=== PATIENT | male | born 1980 | race Caucasian/White ===

== ENCOUNTER 2024-09-23 15:24 | Outpatient (CLI) | payer OTHER, SELFPAY ==
--- NOTE | ~2024-09-23 | US_ITS ---
Right lower chest upper abdominal area ULTRASOUND (Doppler ultrasound interrogation techniques used a s needed for this exam.) Ordering provider: SHAYNA Rodriguez History: . 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 Comparison: None. FINDINGS/impression: 1.4 x 0.7 x 1.4 cm hyperechoic area is noted most likely a lipoma. Differential include lymph node. F ollow-up advised. Reviewed, dictated and finalized at location A. [employer] ACCOUNT MANAGER
== END 2024-09-23 15:25 | disposition home or self-care (01) ==
LOC: MICIMG 15:25
PROVIDERS: PCP Family Medicine; Visit Provider Nurse Practitioner Family
DX: D17.9 Benign lipomatous neoplasm, unspecified (principal)
CPT/HCPCS: 76705

== ENCOUNTER 2024-11-18 06:50 | Outpatient (CLI) | payer OTHER, SELFPAY ==
--- NOTE | ~2024-11-18 | MR_ITS ---
EXAMINATION: MR abdomen wo/w con DATE: 11/18/2024 07:57 INDICATION: Benign lipomatous neoplasm TECHNIQUE: Magnetic resonance imaging (MRI) of the abdomen was performed without and with 17 mL Multi phil intravenous contrast. Sequences included coronal T2-weighted SS-FSE, coronal and axial FS 2D-F IESTA, axial STIR FSE, axial T2-weighted SS-FSE, axial T2-weighted FS SS-FSE, axial diffusion-weighte d SE, axial dual-echo T1-weighted FSPGR, and axial and coronal T1-weighted LAVA. Postcontrast axial T 1-weighted LAVA images were obtained in a time course. Postcontrast coronal T1-weighted LAVA images w ere obtained. COMPARISON: Ultrasound dated 09/23/2024 FINDINGS: Heart size is normal. No pericardial or pleural effusion. Liver, gallbladder, spleen, pancreas and bi lateral adrenal glands are normal. Bilateral T2 hyperintense nonenhancing renal cysts the larger on t he left measuring 1.3 cm. Visualized portion of the bowels are unremarkable. Normal bone marrow signa l throughout. Tiny fat-containing umbilical hernia. No abnormal mass or evident encapsulated lipoma e vident at the posterolateral right abdominal wall underlying the marker indicating the region of conc genevieve.. IMPRESSION: 1. No evident lipoma or other abnormal masses or fluid collections at the lateral right abdominal wal l region of concern. Reviewed, dictated and finalized at location A. IMPRESSION: 1. No evident lipoma or other abnormal masses or fluid collections at the later al right abdominal wall region of concern.
== END 2024-11-18 06:51 | disposition home or self-care (01) ==
PROVIDERS: PCP Family Medicine; Visit Provider Nurse Practitioner Family
DX: D17.9 Benign lipomatous neoplasm, unspecified (principal)
CPT/HCPCS: 74183; A9577

== ENCOUNTER 2024-12-26 01:36 | Day surgery (SDC) | payer OTHER, SELFPAY ==
[2024-12-16 15:05] VITALS: BMI 26.5
[2024-12-26 10:52] VITALS: BP 125/90; PULSE 66; RESP 18; TEMP 35.8; O2SAT 100; BMI 25.6
[2024-12-26] MEDS: LACTATED RINGERS 1,000 ML 150 ML IV CONT (11:07)
--- NOTE | 2024-12-26 12:01 | WPDANESEPPF ---
Anes - Initial Pre Proc Eval Procedure: Operation Date: 12/26/24 12:30 Proposed Procedures p Screening Colonoscopy - Lino Hameed MD Date/Time: 12/26/24 12:01 Surgeon: Lino Hameed MD Pre Op Diagnosis: Screening Patient Data Age: 44 Gender: M Height: 1.78 m Weight: 81 kg Last Vital Signs Temp 96.4 F L 12/26/24 10:52 Pulse 66 12/26/24 10:52 Resp 18 12/26/24 10:52 BP 125/90 12/26/24 10:52 Pulse Ox 100 12/26/24 10:52 O2 Del Method Room Air 12/26/24 10:52 Allergies Allergy/AdvReac Type Severity Reaction Status Date / Time No Known Allergies Allergy Mild Verified 12/26/24 10:56 Home Medications ?Medication ?Instructions ?Recorded ?Confirmed ?Type No Home Medications 12/06/24 12/16/24 History Patient hx anesthesia problems: none Family hx anesthesia problems: none Results Review: All pre-operative results and documents have been reviewed as part of the pre-operative evaluation. [facility] Past Medical History Medical History ERIK (obstructive sleep apnea) Anxiety with depression Anxiety Surgical History Surgical History History of partial thyroidectomy Hx of LASIK Family History Family History Grandparent Family history of emphysema Social History Social History Smoking packs per day: 0.5 Smoking cigarettes per day: 10.0 Years smoked: 20 Smoking pack-years: 10.00 Smoking status: Former smoker Tobacco type: cigarettes and e-cigarettes/vaping Second hand tobacco smoke exposure: No Alcohol intake: current Substance use type: marijuana Spiritual care concerns: No Anes - Eval Final PreProcedure Day of Procedure 12/26/24 12:01 Patient weight: overweight Heart: regular rate and rhythm Lungs: clear to auscultation Airway: Mallampati scale class II Neurological: alert and oriented Last oral intake: >/= 8 hours ASA classification: II Emergent: yes Anesthetic plan: proceed Anesthesia type and monitoring: general GIVS and standard monitoring Results Review: All pre-operative results and documents have been reviewed as part of the pre-operative evaluation. Informed Consent: The patient's anesthetic plan and its attendant risks and benefits were discussed with the patient/family/POA. Questions were solicited and answers provided to the satisfaction of the patient/family/POA.
--- NOTE | 2024-12-26 12:05 | PM.IMHP ---
H&P: HPI History of Present Illness Date/Time: 12/26/24 12:05 Chief Complaint: Screening colonoscopy Narrative: This is the patient's first colonoscopy. There are no GI symptoms and there is no family history of colorectal cancer. Review of Systems Review of Systems: All systems reviewed & are unremarkable except as noted in HPI and below PMFSH Past Medical History Medical History ERIK (obstructive sleep apnea) Anxiety with depression Anxiety Surgical History Surgical History History of partial thyroidectomy Hx of LASIK Family History Family History Grandparent Family history of emphysema Social History Social History Smoking packs per day: 0.5 Smoking cigarettes per day: 10.0 Years smoked: 20 Smoking pack-years: 10.00 Smoking status: Former smoker Tobacco type: cigarettes and e-cigarettes/vaping Second hand tobacco smoke exposure: No Alcohol intake: current Substance use type: marijuana Spiritual care concerns: No Meds Home Medications and Allergies Home Medications ?Medication ?Instructions ?Recorded ?Confirmed ?Type No Home Medications 12/06/24 12/16/24 History Allergies Allergy/AdvReac Type Severity Reaction Status Date / Time No Known Allergies Allergy Mild Verified 12/26/24 10:56 Vital Signs Vital Signs - 24 hr 12/26/24 10:52 Temperature 96.4 F L Pulse Rate 66 Respiratory Rate 18 Blood Pressure 125/90 Pulse Oximetry 100 Oxygen Delivery Room Air Exam Const: General: cooperative and healthy appearing Resp: Effort & Inspection: normal respiratory effort and able to speak in complete sentences Auscultation: clear to auscultation bilaterally Cardio: Rate: regular rate Rhythm: regular rhythm GI: Inspection: normal to inspection GI Palp: No No hepatosplenomegaly present Auscultation: normal bowel sounds Rectal Exam: deferred Skin: General skin exam: normal color Psych: Appearance: grossly normal Mental Status: mental status grossly normal Assessment and Plan Assessment and plan (1) Screen for colon cancer: Code(s): Z12.11 - Encounter for screening for malignant neoplasm of colon Status: Acute Assessment and Plan: The patient is deemed a good candidate for the procedure. Consent signed. Will proceed.
--- NOTE | 2024-12-26 12:19 | S_PTH ---
PATIENT: Yobany Vicente LOC: [facility] #:[id number] AGE/SX: 44/M ROOM: RE12/26/[address]: Lino Hameed MD : 1980 BED: DIS: 12/26/2024 SPEC #: [id number] RECD: 12/26/24 12:57 STATUS: ASHIA REQ #: [id number] JESUS: 12/26/24 12:[address]: Lino Hameed DEPT: [facility] Surgical RECD BY: Phyllis Mcguire ENTERED: 12/26/24 12:57 SP TYPE: Surgical OTHR DR: Jamison Fofana MD Tissues: A - Colon Polypectomy Procedures: Hematoxylin and Eosin Stain Gross and Microscopic Level 4
[2024-12-26 12:27] VITALS: BP 117/81; PULSE 60; RESP 17; O2SAT 100
[2024-12-26 12:37] VITALS: BP 113/78; PULSE 60; RESP 15; O2SAT 100
[2024-12-26 12:47] VITALS: BP 119/77; PULSE 62; RESP 15; O2SAT 100
== END 2024-12-26 13:02 | disposition home or self-care (01) ==
PROVIDERS: PCP Family Medicine; Referring Provider Nurse Practitioner Family; Visit Provider Internal Medicine Gastroenterology
PROC: 0DJD8ZZ Inspection of Lower Intestinal Tract, Via Natural or Artificial Opening Endoscopic (ICD-10-PCS; CPT 45378; principal; 2024-12-26 12:30)
DX: Z12.11 Encounter for screening for malignant neoplasm of colon (principal); K63.5 Polyp of colon; K57.30 Diverticulosis of large intestine without perforation or abscess without bleeding; Z87.891 Personal history of nicotine dependence
CPT/HCPCS: 45385; 88305; J2003; J2704; J7120

== ENCOUNTER 2025-01-11 00:27 | Day surgery (SDC) | payer OTHER, SELFPAY ==
[2025-01-09 09:34] VITALS: BMI 26.5
--- NOTE | 2025-01-09 09:43 | PC.NURSE ---
Report to the Outpatient Waiting Room, entrance under the green pavilion located off [facility], at time _1000_ on date _[id number]_. Planned Procedure Time: _1200_.? Time changes happen often and if your time is changed the preop area will call you the afternoon before. - You and your visitor will be asked to self-screen and do not enter if you have any COVID symptoms. Please call surgeon if you need to reschedule. - A mask is optional within the hospital at this time. Patients may have clear liquids (water, carbonated beverages, clear teas, apple juice) until 3 hours prior to surgery with a maximum of 20 ounces. - No food from midnight until time of surgery and no smoking, or chewing tobacco (or any form of nicotine). No chewing gum, candy or mints. Take only the following medications with a SIP of water on the morning of surgery: ___None___ DO NOT STOP ANY OF YOUR OTHER PRESCRIPTION MEDICATIONS PRIOR TO SURGERY EXCEPT THE FOLLOWING Hold all vitamins and supplements for 3 days per anesthesiologist. Medications to discontinue per physician Date to take last dose____ Please no make-up, nail spanish, hairspray, perfume, deodorant, or body powder the day of surgery.? No jewelry (including any body piercings) or valuables the day of surgery, leave them at home.? Please take a shower or bath the night before, or the morning of, surgery with an antibacterial soap.? Wear comfortable, loose fitting clothing.? - Jewelry must be removed prior to entering the operating room.? Rings and piercings that are not removed may be cut off. - The hospital will not accept responsibility for valuables.? - Please leave all valuables, including medications, at home the day of surgery. If you are going home after surgery, a licensed coal tram driver must drive you home.? - NO public transportation without another adult if you receive anesthesia. - We recommend that an adult stay with you for 24 hours following discharge. - We also recommend that you do not drive, make important decision, drink alcoholic beverages, or take any drugs that were not prescribed by your health care provider for at least 24 hours after your discharge time. Follow any additional instructions given to you from your surgeon. Telephone instructions given to __Yobany__and asked if any additional questions and then verbalized understanding. Patient advised to call surgeon office or pre surgery nurse liaison [phone] if any additional questions.
[2025-01-11] VITALS (8 sets, daily range): BP systolic 112–143; BP diastolic 73–94; PULSE 61–70; RESP 10–16; TEMP 36.4–37.1; O2SAT 98–99; BMI 25.9
--- NOTE | 2025-01-11 10:24 | P.PNAN_ITS ---
Anes - Initial Pre Proc Eval Procedure: Operation Date: 01/11/25 12:00 Proposed Procedures p Excision of Right Flank Subcutaneous Mass, Right Upper Quadrant Subcutaneous Mass - Ciara Orellana MD Date/Time: 01/11/25 10:24 Surgeon: Ciara Orellana MD Pre Op Diagnosis: rt sub -q mass, rt upper quad sub -q mass Patient Data Age: 44 Gender: M Height: 1.78 m Weight: 82 kg Allergies Allergy/AdvReac Type Severity Reaction Status Date / Time No Known Allergies Allergy Mild Verified 01/11/25 10:10 Home Medications ?Medication ?Instructions ?Recorded ?Confirmed ?Type No Home Medications 12/06/24 01/09/25 History Patient hx anesthesia problems: none Family hx anesthesia problems: none Results Review: All pre-operative results and documents have been reviewed as part of the pre-o perative evaluation. [facility] Past Medical History Medical History ERIK (obstructive sleep apnea) Anxiety with depression Anxiety Surgical History Surgical History History of partial thyroidectomy Hx of LASIK Family History Family History Grandparent Family history of emphysema Social History Social History Smoking packs per day: 0.5 Smoking cigarettes per day: 10.0 Years smoked: 20 Smoking pack-years: 10.00 Smoking status: Former smoker Tobacco type: cigarettes and e-cigarettes/vaping Smokeless tobacco user: other Second hand tobacco smoke exposure: No Alcohol intake: current Substance use type: marijuana Spiritual care concerns: No Anes - Eval Final PreProcedure Day of Procedure 01/11/25 10:24 Patient weight: normal Heart: regular rate and rhythm Lungs: clear to auscultation Airway: Mallampati scale class II Neurological: alert and oriented Last oral intake: >/= 8 hours ASA classification: II Emergent: no Anesthetic plan: proceed Anesthesia type and monitoring: general LMA and standard monitoring Results Review: All pre-operative results and documents have been reviewed as part of the pre-operative evaluation. Informed Consent: The patient's anesthetic plan and its attendant risks and benefits were discussed with the patient/family/POA. Questions were solicited and answers provided to the satisfaction of the patient/family/POA.
[2025-01-11] MEDS: LACTATED RINGERS 1,000 ML 30 ML IV CONT (10:25)
--- NOTE | 2025-01-11 11:46 | P.HP_ITS ---
H&P: HPI History of Present Illness Date/Time: 01/11/25 11:46 Chief Complaint: Right flank subcutaneous mass Narrative: Yobany is a 44 y/o male who presents with two abdominal masses at the request of SHAYNA Solorzano. He reports first noticing this about 1 year ago. He states both areas are tender to the touch. He feels they have increased in size. He denies overlying skin changes. Soft tissue U/S was done on 09/23/24 and showed a 1.4 x 0.7 x 1.4 cm hyperechoic area is noted most likely a lipoma. Differential include lymph node. Subsequently, an MR abdomen was done on 11/18/24 which showed no evident lipoma or other abnormal masses or fluid collections at the lateral right abdominal wall region of concern. Review of Systems Review of Systems: All systems reviewed & are unremarkable except as noted in HPI and below PMFSH Past Medical History Medical History ERIK (obstructive sleep apnea) Anxiety with depression Anxiety Surgical History Surgical History History of partial thyroidectomy Hx of LASIK Family History Family History Grandparent Family history of emphysema Social History Social History Smoking packs per day: 0.5 Smoking cigarettes per day: 10.0 Years smoked: 20 Smoking pack-years: 10.00 Smoking status: Former smoker Tobacco type: cigarettes and e-cigarettes/vaping Smokeless tobacco user: other Second hand tobacco smoke exposure: No Alcohol intake: current Substance use type: marijuana Spiritual care concerns: No Meds Home Medications and Allergies Home Medications ?Medication ?Instructions ?Recorded ?Confirmed ?Type No Home Medications 12/06/24 01/09/25 History Allergies Allergy/AdvReac Type Severity Reaction Status Date / Time No Known Allergies Allergy Mild Verified 01/11/25 10:10 Vital Signs Vital Signs - 24 hr 01/11/25 10:25 Temperature 37.1 C Pulse Rate 70 Respiratory Rate 14 Blood Pressure 124/88 Pulse Oximetry 99 Oxygen Delivery Room Air Exam Const: General: cooperative, comfortable and no acute distress Resp: Auscultation: clear to auscultation bilaterally Cardio: Rate: regular rate Rhythm: regular rhythm GI: Inspection: normal to inspection Skin: Other: 3x2 cm sq mass R flank, 2x1 cm sq mass R UQ abd wall Assessment and Plan Assessment and plan (1) Lipoma: Code(s): D17.9 - Benign lipomatous neoplasm, unspecified Status: Acute Assessment and Plan: will setup for exc bx of sq mass x 2 R flank, RUQ abd wall
--- NOTE | 2025-01-11 11:48 | WPDHPUPDATE1 ---
History and Physical Update Update Date/Time: 01/11/25 11:48 History and Physical has been reviewed, including an updated exam of the patient. There are NO changes in the patient's condition. Risks, benefits, and alternatives have been discussed and questions answered. Patient agrees to proceed with procedure.
[2025-01-11] MEDS: BUPIVACAINE/EPINEPHRINE 0.5% 30 ML VIAL INFILTRATE (12:22)
[2025-01-11] MEDS: ceFAZolin 2 GM/D5W 50 ML 2 GM/50 ML BAG IVPB (12:22)
--- NOTE | 2025-01-11 12:44 | S_PTH ---
PATIENT: Yobany Vicente LOC: [facility] U#:[id number] AGE/SX: 44/M ROOM: RE01/11/[address]: Ciara Orellana MD : 1980 BED: DIS: 01/11/2025 SPEC #: [id number] RECD: 01/11/25 13:20 STATUS: ASHIA REQ #: [id number] JESUS: 01/11/25 12:[address]: Ciara Orellana DEPT: [facility] Surgical RECD BY: Phyllis Mcguire ENTERED: 01/11/25 13:20 SP TYPE: Surgical OTHR DR: Jamison Fofana MD Tissues: A - Mass Procedures: Hematoxylin and Eosin Stain Gross and Microscopic Level 3
--- NOTE | 2025-01-11 12:53 | W.PM.PROC2 ---
Procedure Note - Detailed Date of Procedure 01/11/25 Pre-op Diagnosis right flank subcutaneous mass, right upper quadrant abdominal wall subcutaneous mass Post-op Diagnosis Same Procedure Performed excisional biopsy right flank subcutaneous mass measuring 3 x 2 cm, right upper quadrant abdominal wall subcutaneous mass measuring 2 x 1 cm Surgeon Ciara Orellana MD Anesthesia General and Local Indications 44-year-old male presenting to the office subcutaneous mass x2. Patient reports growth over the last year and symptomatology with pressure. Findings 3 x 2 cm right flank subcutaneous mass, 2 x 1 cm right upper quadrant abdominal wall subcutaneous mass, both consistent with lipoma Description of Procedure The patient was taken the operating room and placed in the lateral position. After adequate induction general anesthesia, the patient was prepped and draped in the normal sterile fashion. A time-out was then done to verify the patient's identity, as well as the procedure being performed. I began by localizing the area and around these masses. Once locally anesthetized, I made an incision over the dermis of the right flank mass. This was carried down through the dermis and into the subcutaneous tissue. A well encapsulated subcutaneous mass was noted. I was able to completely dissect around this mass both sharply with the Bovie cautery and bluntly with the hemostat. The mass was then completely excised. It measured approximately 3 x 2 cm and was most consistent with lipoma. It will be sent to pathology for further review. Hemostasis was then gained with the Bovie cautery. I then copiously irrigated the cavity and no other pathology was noted. I then closed the subcutaneous tissue with 3-0 Vicryl suture. The skin was closed with 4-0 Monocryl subcuticular suture. Dermabond was then placed on the wound. I then made an incision over the right upper quadrant abdominal wall subcutaneous mass. Again this was carried down through the dermis and into the subcutaneous tissue. Again a well-circumscribed mass was noted. I sharply dissected around the mass and excise the mass in full. It measured 2 x 1 cm and will be sent to pathology for further review, it was most consistent with a lipoma. I then copiously irrigated around the cavity and hemostasis was gained with the Bovie cautery. No other pathology was noted in the cavity. The cavity was again closed with 3-0 Vicryl suture in the subcutaneous level and 4-0 Monocryl subcuticular suture. Dermabond was placed on this wound. The patient tolerated this procedure well and was extubated postoperatively. He will be transferred to the recovery room in stable condition. Estimated Blood Loss 5 Pathology Yes Complications No immediate complications Condition Stable Disposition PACU [facility] Billing Surgery - Charge Forward: Surgery Billing
[2025-01-11] MEDS: oxyCODONE HCL (*CRX) 5 MG TAB IR PO (14:21)
== END 2025-01-11 15:00 | disposition home or self-care (01) ==
PROVIDERS: PCP Family Medicine; Visit Provider Surgery
PROC: (CPT 21931; principal; 2025-01-11 12:00)
DX: D17.1 Benign lipomatous neoplasm of skin and subcutaneous tissue of trunk (principal); G47.33 Obstructive sleep apnea (adult) (pediatric); F41.9 Anxiety disorder, unspecified; F12.90 Cannabis use, unspecified, uncomplicated; Z98.890 Other specified postprocedural states; Z87.891 Personal history of nicotine dependence
CPT/HCPCS: 21931; 22902; 88304; A9270; J0690; J1100; J2003; J2250; J2405; J2704; J3010; J7120